=== PATIENT | female | born 1990 | race Caucasian/White ===

== ENCOUNTER 2023-07-01 00:14 | Emergency (ER) | payer OTHER ==
[~2023-07-01] VITALS: Ht 165.1 cm; Wt 83.9 kg
[2023-07-01 01:18] VITALS: BP 134/77; TEMP 98.2; O2SAT 99
[2023-07-01] MEDS ORDERED: AMOX-430 PO (01:23)
== END 2023-07-01 01:59 | disposition home or self-care (01) ==
LOC: ER 00:31
DX: K08.89 Other specified disorders of teeth and supporting structures (principal); Z79.899 Other long term (current) drug therapy; Z60.2 Problems related to living alone